=== PATIENT | female | born 1950 | race Caucasian/White ===

== ENCOUNTER → 2018-07-16 07:15 | Outpatient (CLI) | payer MEDICARE, OTHER, SELFPAY ==
[2018-07-16 09:40] LABS: Add Manual Diff / Slide Review NO; Basophils Percent Auto 1.4 % (0-2); Eosinophils Percent Auto 2.2 % (2-4); Hematocrit 41.6 % (36-46); Hemoglobin 14.1 g/dL (12.0-16.0); Lymphocytes Percent Auto 43.7 % (25-40); Mean Corpuscular Hemoglobin 29.7 PG (26-34); Mean Corpuscular Volume 87.4 fL (80-100); Monocytes Percent Auto 6.5 % (3-14); Neutrophils Absolute Auto 1400 /uL (3000-5900); Neutrophils Percent Auto 46.2 % (50-75); Platelet Count 238 X10^3/uL (150-400); Red Blood Cell Count 4.76 X10^6/uL (4.0-5.2); Red Cell Distribution Width 12.8 % (11.6-14.8); White Blood Cell Count 3.1 X10^3/uL (4.5-11.0)
[2018-07-16 09:49] LABS: Alanine Aminotransferase 30 IU/L (9-52); Albumin 4.6 g/dL (3.5-5.0); Albumin Globulin Ratio 1.7 (1.0-2.8); Alkaline Phosphatase 59 U/L (38-126); Aspartate Aminotransferase 30 IU/L (14-36); BUN Creatinine Ratio 15.7 (6-22); Bilirubin Total 0.7 mg/dL (0.2-1.3); Blood Urea Nitrogen 11 mg/dL (7-17); Calcium 9.5 mg/dL (8.4-10.2); Carbon Dioxide 28 mmol/L (22-32); Chloride 104 mmol/L (98-107); Cholesterol 163 mg/dL (140-199); Estimated Glomerular Filt Rate > 60.0 mL/min (>60); Globulin 2.7 g/dL (1.7-4.1); Glucose 80 mg/dL (80-110); HDL Cholesterol 72 mg/dL (40-60); HEMOLYSIS < 15 (0-50); LDL Cholesterol Calculated 80 mg/dL (<100); Potassium 4.4 mmol/L (3.4-5.1); Sodium 144 mmol/L (137-145); Total Protein 7.3 g/dL (6.3-8.2); Triglycerides 56 mg/dL (35-150)
[2018-07-16 10:43] LABS: TSH w/ Reflex to FT4 2.08 uIU/mL (0.47-4.68)
== END ==
PROVIDERS: PCP Family Medicine; Visit Provider Family Medicine
DX: E78.5 Hyperlipidemia, unspecified (principal); E55.9 Vitamin D deficiency, unspecified
CPT/HCPCS: 36415; 80053; 80061; 82306; 84443; 85025

== ENCOUNTER → 2018-09-10 09:10 | Outpatient (CLI) | payer MEDICARE, OTHER, SELFPAY ==
--- NOTE | 2018-09-10 09:11 | DI.MG.S_ITS ---
BILATERAL DIGITAL SCREENING MAMMOGRAM 3D/2D WITH CAD WITH AUGMENTATION: 09/10/2018 CLINICAL: Routine screening. Comparison is made to exams dated: 08/12/2017 mammogram, 06/20/2016 mammogram, and 06/15/2015 mammogram - [facility]. The tissue of both breasts is heterogeneously dense. This may lower the sensitivity of mammography. Current study was also evaluated with a Computer Aided Detection (CAD) system. Bilateral breast implants are intact. No significant masses, calcifications, or other findings are seen in either breast. There has been no significant interval change. IMPRESSION: NEGATIVE There is no mammographic evidence of malignancy. A 1 year screening mammogram is recommended. This exam was interpreted at Station ID: [id number]. NOTE: For mammograms, a report in lay terms will be sent to the patient. Approximately 15% of breast malignancies will not be visualized mammographically. In the management of a palpable breast mass, a negative mammogram must not discourage biopsy of a clinically suspicious lesion. Electronically Signed By: Chela juarez/alisha:09/10/2018 09:57:47 letter sent: Normal Exam ACR BI-RADS Category 1: Negative 3341F
== END ==
PROVIDERS: PCP Family Medicine; Visit Provider Family Medicine
DX: Z12.31 Encounter for screening mammogram for malignant neoplasm of breast (principal)
CPT/HCPCS: 77063; 77067

== ENCOUNTER → 2018-09-24 08:38 | Outpatient (CLI) | payer MEDICARE, OTHER, SELFPAY ==
[2018-09-24 10:49] LABS: Vitamin D 25 Hydroxy (D3) 44.4 ng/mL (30.0-100.0)
== END ==
PROVIDERS: PCP Family Medicine; Visit Provider Family Medicine
DX: E55.9 Vitamin D deficiency, unspecified (principal)
CPT/HCPCS: 36415; 82306

== ENCOUNTER → 2019-07-20 09:10 | Outpatient (CLI) | payer MEDICARE, OTHER, SELFPAY ==
[2019-07-20 09:46] LABS: Add Manual Diff / Slide Review NO; Basophils Absolute Auto 0 /uL (0-100); Basophils Percent Auto 1.2 % (0-2); Eosinophils Absolute Auto 100 /uL (0-450); Eosinophils Percent Auto 2.9 % (2-4); Hematocrit 40.3 % (36-46); Lymphocytes Absolute Auto 1400 /uL (1100-4500); Lymphocytes Percent Auto 40.8 % (25-40); Mean Corpuscular HGB Conc 34.7 % (30-36); Mean Corpuscular Hemoglobin 30.9 PG (26-34); Monocytes Absolute Auto 200 /uL (0-900); Monocytes Percent Auto 6.6 % (3-14); Neutrophils Absolute Auto 1700 /uL (1500-7000); Neutrophils Percent Auto 48.5 % (50-75); Platelet Count 214 X10^3/uL (150-400); Red Blood Cell Count 4.53 X10^6/uL (4.0-5.2); Red Cell Distribution Width 12.3 % (11.6-14.8); White Blood Cell Count 3.5 X10^3/uL (4.5-11.0)
[2019-07-20 10:02] LABS: Alanine Aminotransferase 20 IU/L (<35); Albumin 4.6 g/dL (3.5-5.0); Alkaline Phosphatase 65 U/L (38-126); Aspartate Aminotransferase 27 IU/L (14-36); BUN Creatinine Ratio 18.8 (6-22); Bilirubin Total 0.7 mg/dL (0.2-1.3); Blood Urea Nitrogen 15 mg/dL (7-17); Calcium 9.6 mg/dL (8.4-10.2); Carbon Dioxide 27 mmol/L (22-32); Chloride 106 mmol/L (98-107); Estimated Glomerular Filt Rate > 60.0 mL/min (>60); Globulin 2.7 g/dL (1.7-4.1); Glucose 94 mg/dL (80-110); Potassium 4.5 mmol/L (3.4-5.1); Sodium 141 mmol/L (137-145); Total Protein 7.3 g/dL (6.3-8.2)
[2019-07-20 10:03] LABS: Albumin Globulin Ratio 1.7 (1.0-2.8); Cholesterol 177 mg/dL (140-199); HDL Cholesterol 76 mg/dL (40-60); HEMOLYSIS < 15 (0-50); LDL Cholesterol Calculated 91 mg/dL (<100); Triglycerides 52 mg/dL (35-150)
[2019-07-20 10:13] LABS: Vitamin D 25 Hydroxy (D3) 41.5 ng/mL (30.0-100.0)
== END ==
PROVIDERS: PCP Family Medicine; Visit Provider Family Medicine
DX: E78.5 Hyperlipidemia, unspecified (principal); M85.80 Other specified disorders of bone density and structure, unspecified site
CPT/HCPCS: 36415; 80053; 80061; 82306; 85025

== ENCOUNTER → 2019-08-07 07:53 | Outpatient (CLI) | payer MEDICARE, OTHER, SELFPAY ==
--- NOTE | 2019-08-07 07:54 | DI.RAD.S_ITS ---
PROCEDURE: FL BARIUM SWALLOW W SPEECH INDICATIONS: Trouble Swallowing TECHNIQUE: Examination was conducted in conjunction with speech pathology per standard protocol. In the lateral projection, filming was performed of the patient swallowing. AP projection filming may also be performed with patient swallowing. COMPARISON: None. FINDINGS: Study performed in conjunction with speech pathology. Barium contrasted materials of differing viscosity in texture or utilized for the study. Function: The oral preparatory phase appears normal, with proper containment. The subsequent oral propulsive phase, pharyngeal phase, and esophageal phase of swallowing also appear normal with all proffered substances. Mild laryngotracheal penetration noted. No laryngotracheal jacklyn aspiration. Vallecular pooling was noted with thin and thick barium which is easily cleared with repeated swallows. Morphology: No cricopharyngeal bar is identified. No cervical esophageal webs. No Zenker's diverticulum. No strictures. IMPRESSION: 1. Mild laryngotracheal penetration without jacklyn aspiration. 2. Mild vallecular pooling easily cleared with repeated swallows. 3. Please see speech pathology report for final disposition. Dictated by: Carley De Jesus MD, PhD on 08/11/2019 at 9:56 Approved by: Carley De Jesus MD, PhD on 08/11/2019 at 10:02
--- NOTE | 2019-08-07 12:34 | ST.SWALLOW ---
Visit Care Team Role Provider Type Marjan Gonzales DO Attending Provider Physician Primary Care Provider Specialty: Family Practice Address: [address] [place] [address], [address], [place], [address] Email: 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 Gonzales Reason for Referral Dysphagia with solids Setting Setting Outpatient Care Patient Information Identification Type Name Patient History Patient complains of globus sensation with solid foods. Denies difficulty with thin liquids. She has a history of allergies and is being worked up for possible reflux. Subjective Observations Alert and oriented Patient Positioning Position View Lat-A/P Imaging Lateral View Textures Administered Trials Presented Thin Liquid via Spoon,Thin Liquid via Cup,[place] Liquid via Spoon,[place] Liquid via Cup,Honey Liquid via Spoon, Pudding Thick Liquid via Spoon ,Regular Textures Oral Phase Source: MBSIMP (TM) (C) Bolus Specific Scoring Grid Lip Closure No Impairment (WNL) Tongue Control During Bolus Hold No Impairment (WNL) Bolus Prep/Mastication No Impairment (WNL) Bolus Transport/Lingual Motion No Impairment (WNL) Oral Residue No Impairment (WNL) Residue Clearing No Impairment (WNL) Nasal Regurgitation No Additional Oral Phase Observations No oral phase impairments observed during the study. Pharyngeal Phase Source: MBSIMP (TM) (C) Bolus Specific Scoring Grid Delayed Initiation of Pharyngeal Swallow No Soft Palate Elevation No Impairment (WNL) Tongue Base Strength/Range of Motion No Impairment (WNL) Laryngeal Elevation Mild Impairment Anterior Hyoid Movement No Impairment (WNL) Epiglottic Range of Motion Mild Impairment Vallecular Residue Yes Laryngeal Vestibular Closure No Impairment (WNL) Pharyngeal Stripping Wave No Impairment (WNL) Upper Esophageal Sphincter Opening Mild Impairment Clearance of Residue in the Pyriform Mild Impairment Sinuses Additional Pharyngeal Phase Observations Partial epiglottic inversion and superior movement of thyroid cartilage with partial approximation of arytenoids to epiglottic petiole allowing for flash penetration without aspiration of liquids. Penetration Aspiration Scale Score - 2. At the height of the swallow, laryngeal vestibular closure was complete with no air or contrast in the laryngeal vestibule. Narrowing of the proximal esophagus was observed due to partial distension of the pharyngoesophageal segment opening. Additionally, osteophytes were observed at the level of C 5-6 which may be contributing to patient's symptoms. There was a collection of residue in the valleculae on all trials which increased with bolus size as well as trace residue on the aryepiglottic folds. Residue cleared with a dry swallow. A/P View Textures Administered Trials Presented Barium Tablet Esophageal Observations Esophageal Function Observed complete clearance of barium tablet with additional sips of water. Clinical Impressions Findings Mild pharyngeal phase dysphagia characterized by penetration without aspiration and vallecular residue. Verbal education was provided to patient regarding implementing a double swallow to clear residue, taking small bites/sips and alternating liquids/solids to assist in clearance. No further speech therapy recommended at this time. Recommendations Diet Liquids Order Thin Diet Order Regular Comments Extra sips of water to aid in clearance Aspiration Precautions Recommended Precautions Upright at 90 Degrees, Alternate Liquids/Solids,Small Bites/Sips,Double Swallow Treatment Plan Recommended Referrals Primary Care Physician
== END ==
PROVIDERS: PCP Family Medicine; Visit Provider Family Medicine
DX: R13.10 Dysphagia, unspecified (principal)
CPT/HCPCS: 74230; 92611

== ENCOUNTER → 2019-10-06 11:31 | Outpatient (CLI) | payer MEDICARE, OTHER, SELFPAY | PROVIDERS: PCP Family Medicine; Referring Provider Family Medicine; Visit Provider Family Medicine | DX: Z12.31 Encounter for screening mammogram for malignant neoplasm of breast (principal); Z53.9 Procedure and treatment not carried out, unspecified reason ==

== ENCOUNTER → 2019-11-03 14:29 | Outpatient (CLI) | payer MEDICARE, OTHER, SELFPAY ==
--- NOTE | 2019-11-03 | DI.MG.S_ITS ---
BILATERAL DIGITAL DIAGNOSTIC MAMMOGRAM 3D/2D WITH AUGMENTATION: 11/03/2019 CLINICAL: Left breast lump. Comparison is made to exams dated: 09/10/2018 mammogram - [facility], 08/12/2017 mammogram, and 06/20/2016 mammogram - [facility]. The tissue of both breasts is heterogeneously dense. This may lower the sensitivity of mammography. No significant masses, calcifications, or other findings are seen in either breast. IMPRESSION: INCOMPLETE: NEEDS ADDITIONAL IMAGING EVALUATION There is no abnormality seen in either breast to correspond with the areas of clinical concern and palpable abnormality involving the posterior left upper outer breast and upper outer quadrant of the right breast, however, ultrasound is recommended. The implants have a stable appearance. The recommended breast ultrasound is scheduled to immediately follow this examination. This exam was interpreted at Station ID: [id number]. NOTE: For mammograms, a report in lay terms will be sent to the patient. Approximately 15% of breast malignancies will not be visualized mammographically. In the management of a palpable breast mass, a negative mammogram must not discourage biopsy of a clinically suspicious lesion. Electronically Signed By: Yevgeniy Nugent M.D. aty/:11/03/2019 16:52:47 ACR BI-RADS Category 0: Incomplete 3340F
--- NOTE | 2019-11-03 14:32 | DI.US.S_ITS ---
ULTRASOUND OF RIGHT BREAST: 11/03/2019 CLINICAL: Palpable right breast lump by physician. Comparison is made to exams dated: 11/03/2019 mammogram, 09/10/2018 mammogram - [facility], 08/12/2017 mammogram, 06/20/2016 mammogram, and 06/15/2015 mammogram - [facility]. Color flow and real-time ultrasound of the right breast were performed. Huerta scale images of the real-time examination were reviewed. There is a 0.3 cm x 0.6 cm x 0.2 cm wider than tall oval mass with a circumscribed margin in the right breast at 10 o'clock posterior depth 5 cm from the nipple. This oval mass is hypoechoic with no posterior acoustic shadowing or enhancement. This correlates with area of clinical concern. Color flow imaging demonstrates that there is no vascularity present. This was in the vicinity of the area of clinical concern by the referring physician; however, the patient could not feel it and the transformer shop supervisor could not feel it either after directly localizing it by ultrasound. IMPRESSION: PROBABLY BENIGN The 0.3 cm x 0.6 cm x 0.2 cm wider than tall oval mass in the right breast resembles a small lymph node versus a fibroadenoma and is probably benign. This was in the vicinity of the palpable area of concern as noted by the referring physician but could not be palpated by patient. A follow-up right ultrasound in 6 months is recommended to demonstrate stability. The patient was also instructed to return sooner if development of any clinically suspicious findings over this small mass. Findings and recommendations were relayed to the patient during today's visit. This exam was interpreted at Station ID: [id number]. Electronically Signed By: Yevgeniy lugo/:11/03/2019 17:03:10 letter sent: Followup Recommended Ultrasound BI-RADS: 3 Probably benign
--- NOTE | 2019-11-03 14:32 | DI.US.S_ITS ---
ULTRASOUND OF LEFT BREAST: 11/03/2019 CLINICAL: Palpable left breast lump. Comparison is made to exams dated: 11/03/2019 mammogram, 09/10/2018 mammogram - [facility], 08/12/2017 mammogram, 06/20/2016 mammogram, and 06/15/2015 mammogram - [facility]. Real-time ultrasound of the left breast was performed. Huerta scale images of the real-time examination were reviewed. No significant abnormalities were seen sonographically in the left breast. IMPRESSION: NEGATIVE There is no sonographic evidence of malignancy. There is no abnormality seen in the left breast to correspond with the area of clinical concern and palpable abnormality indicated by triangular marker in the posterior depth, however, clinical followup is recommended for persistent symptoms. A 1 year screening mammogram is recommended for the left breast. This exam was interpreted at Station ID: [id number]. Electronically Signed By: Yevgeniy Nugent M.D. aty/:11/03/2019 16:54:07 letter sent: Normal Exam Ultrasound BI-RADS: 1 Negative
== END ==
PROVIDERS: PCP Family Medicine; Referring Provider Family Medicine; Visit Provider Family Medicine
DX: R92.8 Other abnormal and inconclusive findings on diagnostic imaging of breast (principal); N63.11 Unspecified lump in the right breast, upper outer quadrant; N63.21 Unspecified lump in the left breast, upper outer quadrant
CPT/HCPCS: 76642; 77066; G0279

== ENCOUNTER → 2020-05-03 08:25 | Outpatient (CLI) | payer MEDICARE, OTHER, SELFPAY ==
--- NOTE | 2020-05-03 09:10 | DI.US.S_ITS ---
Patient Name: ANA GUTIERREZ date: 1950 Sex: F Attending Physician: Christian Indications: Date: 05/03/2020 08:59 At the request of: ROGE GRIGGS Procedure: US breast RT limited LIMITED ULTRASOUND OF RIGHT BREAST: 05/03/2020 CLINICAL: 6 month follow-up of palpable mass. Comparison is made to exams dated: 11/03/2019 ultrasound, 11/03/2019 mammogram, 09/10/2018 mammogram, and 11/03/2019 ultrasound - [facility]. Color flow ultrasound of the right breast 10 o'clock region was performed. Huerta scale images of the realtime examination were reviewed. There is a 0.6 cm x 0.4 cm x 0.2 cm oval mass with a circumscribed margin in the right breast at 10 o'clock posterior depth 5 cm from the nipple. This oval mass is hypoechoic. This abnormality is not significantly changed. IMPRESSION: PROBABLY BENIGN The 0.6 cm x 0.4 cm x 0.2 cm oval mass in the right breast resembles a lymph node or a fibroadenoma and is probably benign. A follow-up mammogram and an ultrasound in 6 months is recommended to demonstrate stability. This exam was interpreted at Station ID: [id number]. SUMMARY: Cumulative months of stability: 6. Recommend follow-up right breast diagnostic ultrasound in 6 months to demonstrate continued stability for the finding seen by ultrasound only. The patient will be due for bilateral breast screening mammograms at the time of the follow-up exam. Electronically Signed By: Yordy hudson/alisha:05/03/2020 09:48:53 letter sent: Followup Recommended Continued Report - Page 2 of 2 Patient Name: ANA GUTIERREZ date: 1950 Sex: F Attending Physician: Christian Indications: Date: 05/03/2020 08:59 At the request of: ROGE GRIGGS Procedure: US breast RT limited Ultrasound BI-RADS: 3 Probably benign
== END ==
PROVIDERS: PCP Family Medicine; Referring Provider Family Medicine; Visit Provider Family Medicine
DX: R92.8 Other abnormal and inconclusive findings on diagnostic imaging of breast (principal); N63.11 Unspecified lump in the right breast, upper outer quadrant
CPT/HCPCS: 76642

== ENCOUNTER → 2020-09-22 10:04 | Outpatient (CLI) | payer MEDICARE, OTHER, SELFPAY ==
[2020-09-22 11:46] LABS: Alanine Aminotransferase 18 IU/L (<35); Albumin 4.6 g/dL (3.5-5.0); Alkaline Phosphatase 62 U/L (38-126); Aspartate Aminotransferase 27 IU/L (14-36); Bilirubin Total 0.6 mg/dL (0.2-1.3); Blood Urea Nitrogen 13 mg/dL (7-17); Calcium 9.5 mg/dL (8.4-10.2); Carbon Dioxide 30 mmol/L (22-32); Chloride 101 mmol/L (98-107); Cholesterol 206 mg/dL (140-199); Estimated Glomerular Filt Rate > 60.0 mL/min (>60); Globulin 2.3 g/dL (1.7-4.1); Glucose 85 mg/dL (80-110); HDL Cholesterol 78 mg/dL (40-60); HEMOLYSIS < 15 (0-50); LDL Cholesterol Calculated 110 mg/dL (<100); Potassium 4.3 mmol/L (3.4-5.1); Sodium 135 mmol/L (137-145); Total Protein 6.9 g/dL (6.3-8.2); Triglycerides 89 mg/dL (35-150)
== END ==
PROVIDERS: PCP Family Medicine; Referring Provider Family Medicine; Visit Provider Family Medicine
DX: E78.5 Hyperlipidemia, unspecified (principal)
CPT/HCPCS: 36415; 80053; 80061

== ENCOUNTER → 2020-10-10 09:56 | Outpatient (CLI) | payer MEDICARE, OTHER, SELFPAY ==
--- NOTE | 2020-10-10 09:58 | DI.RAD.S_ITS ---
PROCEDURE: XR DEXA AXIAL SKELETON INDICATIONS: osteopenia COMPARISON: None. FINDINGS: This blank DEXA report has been sent in error by the PACS system. The correct and complete report will be forthcoming in 1-2 days. Thank you for your patience and understanding. Dictated by: Yordy Caballero M.D. on 10/10/2020 at 17:17 Approved by: Yordy Caballero M.D. on 10/10/2020 at 17:17
== END ==
PROVIDERS: PCP Family Medicine; Referring Provider Family Medicine; Visit Provider Family Medicine
DX: M85.851 Other specified disorders of bone density and structure, right thigh (principal); Z78.0 Asymptomatic menopausal state
CPT/HCPCS: 77080

== ENCOUNTER → 2020-11-03 09:16 | Outpatient (CLI) | payer MEDICARE, OTHER, SELFPAY ==
--- NOTE | 2020-11-03 | DI.MG.S_ITS ---
BILATERAL DIGITAL DIAGNOSTIC MAMMOGRAM 3D/2D WITH AUGMENTATION: 11/03/2020 CLINICAL: Short term follow up of the right breast, due for bilateral imaging. Comparison is made to exams dated: 11/03/2019 mammogram, 09/10/2018 mammogram - [facility], and 08/12/2017 mammogram - [facility]. The tissue of both breasts is heterogeneously dense. This may lower the sensitivity of mammography. Bilateral breast implants are intact. There are benign calcifications in both breasts. A cluster of calcisifaction on the CCID view is stable compared to a prior Mammogram in 2017. No significant masses, calcifications, or other findings are seen in either breast. There has been no significant interval change. IMPRESSION: INCOMPLETE: NEEDS ADDITIONAL IMAGING EVALUATION No mammographic evidence of malignancy. An US will be performed today to f/u a finding on prior 05/04/20 US. US will be performed and dictated separately. This exam was interpreted at Station ID: [id number]. NOTE: For mammograms, a report in lay terms will be sent to the patient. Approximately 15% of breast malignancies will not be visualized mammographically. In the management of a palpable breast mass, a negative mammogram must not discourage biopsy of a clinically suspicious lesion. Electronically Signed By: Abiodun Espinal acr/:11/03/2020 10:13:31 letter sent: Need Ultrasound ACR BI-RADS Category 0: Incomplete 3340F
--- NOTE | 2020-11-03 09:18 | DI.US.S_ITS ---
ULTRASOUND OF RIGHT BREAST: 11/03/2020 CLINICAL: 6 month follow-up of mass. Comparison is made to exams dated: 11/03/2020 mammogram, 05/03/2020 ultrasound, 11/03/2019 ultrasound, 09/10/2018 mammogram, and 11/03/2019 mammogram - [facility]. Color flow ultrasound of the right breast was performed. Huerta scale images of the real-time examination were reviewed. There is a stable benign 0.6 cm x 0.4 cm x 0.3 cm oval mass with a circumscribed margin in the right breast at 10 o'clock posterior depth 5 cm from the nipple. This oval mass is hypoechoic. IMPRESSION: BENIGN There is no sonographic evidence of malignancy. The stable 0.6 cm x 0.4 cm x 0.3 cm oval mass in the right breast resembles a lymph node or a fibroadenoma and is benign. A 1 year screening mammogram is recommended. This exam was interpreted at Station ID: [id number]. Electronically Signed By: Abiodun Espinal acr/:11/03/2020 10:43:08 letter sent: Normal Exam Ultrasound BI-RADS: 2 Benign
== END ==
PROVIDERS: PCP Family Medicine; Referring Provider Family Medicine; Visit Provider Family Medicine
DX: R92.8 Other abnormal and inconclusive findings on diagnostic imaging of breast (principal); N63.11 Unspecified lump in the right breast, upper outer quadrant; Z98.82 Breast implant status
CPT/HCPCS: 76642; 77066; G0279

== ENCOUNTER → 2021-09-20 07:39 | Outpatient (CLI) | payer MEDICARE, OTHER, SELFPAY ==
[2021-09-20 10:23] LABS: Alanine Aminotransferase 14 IU/L (<35); Albumin 4.4 g/dL (3.5-5.0); Albumin Globulin Ratio 1.6 (1.0-2.8); Alkaline Phosphatase 50 U/L (38-126); Aspartate Aminotransferase 22 IU/L (14-36); BUN Creatinine Ratio 22.4 (6-22); Bilirubin Total 0.4 mg/dL (0.2-1.3); Blood Urea Nitrogen 17 mg/dL (7-17); Calcium 9.5 mg/dL (8.4-10.2); Carbon Dioxide 28 mmol/L (22-32); Chloride 105 mmol/L (98-107); Cholesterol 177 mg/dL (140-199); Estimated Glomerular Filt Rate > 60.0 mL/min (>60); Globulin 2.7 g/dL (1.7-4.1); Glucose 88 mg/dL (80-110); HDL Cholesterol 65 mg/dL (40-60); HEMOLYSIS < 15 (0-50); LDL Cholesterol Calculated 102 mg/dL (<100); Potassium 4.2 mmol/L (3.4-5.1); Sodium 138 mmol/L (137-145); Total Protein 7.1 g/dL (6.3-8.2); Triglycerides 51 mg/dL (35-150)
== END ==
PROVIDERS: PCP Family Medicine; Referring Provider Family Medicine; Visit Provider Family Medicine
DX: E78.5 Hyperlipidemia, unspecified (principal)
CPT/HCPCS: 36415; 80053; 80061

== ENCOUNTER → 2021-12-12 15:11 | Outpatient (CLI) | payer MEDICARE, OTHER, SELFPAY ==
--- NOTE | 2021-12-12 | DI.MG.S_ITS ---
BILATERAL DIGITAL SCREENING MAMMOGRAM 3D/2D WITH CAD WITH AUGMENTATION: 12/12/2021 CLINICAL: Patient presents for routine screening. S/P bilateral augmentation. Comparison is made to exams dated: 11/03/2020 ultrasound, 11/03/2020 mammogram, and 11/03/2019 mammogram - [facility]. The tissue of both breasts is heterogeneously dense. This may lower the sensitivity of mammography. Current study was also evaluated with a Computer Aided Detection (CAD) system. Right MLO implant displaced view could not be obtained due to relatively small amount of breast tissue relative to implant size. Bilateral subglandular silicone implants are present. The left breast implant is intact. The right implant fibrous capsule is calcified. The right implant surface appears irregular, which is simlar when compared to prior exams. No significant masses, calcifications, or other findings are seen in either breast. IMPRESSION: BENIGN There is no mammographic evidence of malignancy. A 1 year screening mammogram is recommended. The right implant internal capsule appears irregular and may be ruptured. A noncontrast breast MRI could be performed for further evaluation of the right implant if indicated clinically. This exam was interpreted at Station ID: [id number]. NOTE: For mammograms, a report in lay terms will be sent to the patient. Approximately 15% of breast malignancies will not be visualized mammographically. In the management of a palpable breast mass, a negative mammogram must not discourage biopsy of a clinically suspicious lesion. Electronically Signed By: Yordy Caballero M.D. ar/:12/13/2021 08:19:08 letter sent: Normal Exam ACR BI-RADS Category 2: Benign Finding(s) 3342F
== END ==
PROVIDERS: PCP Family Medicine; Referring Provider Family Medicine; Visit Provider Family Medicine
DX: Z12.31 Encounter for screening mammogram for malignant neoplasm of breast (principal); Z98.82 Breast implant status
CPT/HCPCS: 77063; 77067

== ENCOUNTER → 2022-01-04 07:01 | Outpatient (CLI) | payer MEDICARE, OTHER, SELFPAY ==
[2022-01-04 09:04] LABS: Alanine Aminotransferase 23 IU/L (<35); Albumin 4.3 g/dL (3.5-5.0); Albumin Globulin Ratio 1.5 (1.0-2.8); Alkaline Phosphatase 63 U/L (38-126); Aspartate Aminotransferase 28 IU/L (14-36); Bilirubin Total 0.5 mg/dL (0.2-1.3); Blood Urea Nitrogen 22 mg/dL (7-17); Calcium 9.1 mg/dL (8.4-10.2); Carbon Dioxide 26 mmol/L (22-32); Chloride 106 mmol/L (98-107); Cholesterol 171 mg/dL (140-199); Estimated Glomerular Filt Rate > 60 mL/min (>60); Globulin 2.8 g/dL (1.7-4.1); Glucose 88 mg/dL (80-110); HDL Cholesterol 84 mg/dL (40-60); HEMOLYSIS < 15 (0-50); LDL Cholesterol Calculated 78 mg/dL (<100); Potassium 4.2 mmol/L (3.4-5.1); Sodium 139 mmol/L (137-145); Total Protein 7.1 g/dL (6.3-8.2); Triglycerides 45 mg/dL (35-150)
== END ==
PROVIDERS: Family Medicine; PCP Family Medicine; Referring Provider Family Medicine; Visit Provider Family Medicine
DX: E78.5 Hyperlipidemia, unspecified (principal)
CPT/HCPCS: 36415; 80053; 80061

== ENCOUNTER → 2022-03-02 07:19 | Outpatient (CLI) | payer MEDICARE, OTHER, SELFPAY ==
[2022-03-02 09:41] LABS: Add Manual Diff / Slide Review NO; Basophils Absolute Auto 0 /uL (0-100); Eosinophils Absolute Auto 100 /uL (0-450); Eosinophils Percent Auto 2.1 % (2-4); Hemoglobin 13.8 g/dL (12.0-16.0); Lymphocytes Absolute Auto 1400 /uL (1100-4500); Lymphocytes Percent Auto 40.1 % (25-40); Mean Corpuscular HGB Conc 34.5 % (30-36); Monocytes Absolute Auto 300 /uL (0-900); Monocytes Percent Auto 7.8 % (3-14); Neutrophils Absolute Auto 1700 /uL (1500-7000); Platelet Count 222 X10^3/uL (150-400); White Blood Cell Count 3.4 X10^3/uL (4.5-11.0)
[2022-03-02 10:44] LABS: Ferritin 48 ng/mL (11-264)
[2022-03-02 10:59] LABS: Vitamin B12 432 pg/mL (239-931)
[2022-03-14 13:54] LABS: DQ8 (DQA1 03XX, DQB1 0302) Negative (.)
== END ==
PROVIDERS: PCP Pediatrics; Referring Provider Allergy & Immunology; Visit Provider Allergy & Immunology
DX: Z91.018 Allergy to other foods (principal)
CPT/HCPCS: 36415; 81377; 82607; 82728; 85025

== ENCOUNTER → 2022-09-18 07:10 | Outpatient (CLI) | payer MEDICARE, OTHER, SELFPAY ==
[2022-09-18 08:00] LABS: Add Manual Diff / Slide Review NO; Basophils Absolute Auto 0 /uL (0-100); Basophils Percent Auto 1.1 % (0-2); Eosinophils Absolute Auto 100 /uL (0-450); Eosinophils Percent Auto 2.3 % (2-4); Hematocrit 42.3 % (36-46); Hemoglobin 14.4 g/dL (12.0-16.0); Lymphocytes Absolute Auto 1800 /uL (1100-4500); Lymphocytes Percent Auto 48.9 % (25-40); Mean Corpuscular HGB Conc 33.9 % (30-36); Mean Corpuscular Hemoglobin 29.3 PG (26-34); Mean Corpuscular Volume 86.5 fL (80-100); Monocytes Absolute Auto 300 /uL (0-900); Monocytes Percent Auto 7.1 % (3-14); Neutrophils Absolute Auto 1500 /uL (1500-7000); Neutrophils Percent Auto 40.6 % (50-75); Platelet Count 239 X10^3/uL (150-400); Red Blood Cell Count 4.89 X10^6/uL (4.0-5.2); Red Cell Distribution Width 12.8 % (11.6-14.8); White Blood Cell Count 3.7 X10^3/uL (4.5-11.0)
[2022-09-18 08:28] LABS: Alanine Aminotransferase 29 IU/L (<35); Alkaline Phosphatase 79 U/L (38-126); Aspartate Aminotransferase 30 IU/L (14-36); BUN Creatinine Ratio 29.7 (6-22); Bilirubin Total 0.7 mg/dL (0.2-1.3); Blood Urea Nitrogen 22 mg/dL (7-17); Calcium 9.5 mg/dL (8.4-10.2); Carbon Dioxide 26 mmol/L (22-32); Chloride 100 mmol/L (98-107); Cholesterol 189 mg/dL (140-199); Estimated Glomerular Filt Rate > 60 mL/min (>60); Glucose 93 mg/dL (80-110); HDL Cholesterol 88 mg/dL (40-60); HEMOLYSIS < 15 (0-50); LDL Cholesterol Calculated 90 mg/dL (<100); Potassium 4.3 mmol/L (3.4-5.1); Sodium 137 mmol/L (137-145); Total Protein 8.1 g/dL (6.3-8.2); Triglycerides 53 mg/dL (35-150)
[2022-09-18 08:45] LABS: Vitamin D 25 Hydroxy (D3) 60.4 ng/mL (30.0-100.0)
[2022-09-21 15:59] LABS: Albumin 4.8 g/dL (3.5-5.0); Albumin Globulin Ratio 1.5 (1.0-2.8); Globulin 3.3 g/dL (1.7-4.1)
== END ==
PROVIDERS: PCP Family Medicine; Referring Provider Family Medicine; Visit Provider Family Medicine
DX: E55.9 Vitamin D deficiency, unspecified (principal); E78.5 Hyperlipidemia, unspecified
CPT/HCPCS: 36415; 80053; 80061; 82306; 85025

== ENCOUNTER → 2022-12-20 07:22 | Outpatient (CLI) | payer MEDICARE, OTHER, SELFPAY ==
[2022-12-20 08:48] LABS: Cholesterol 234 mg/dL (140-199); HDL Cholesterol 89 mg/dL (40-60); LDL Cholesterol Calculated 134 mg/dL (<100); Triglycerides 57 mg/dL (35-150)
== END ==
PROVIDERS: PCP Family Medicine; Referring Provider Family Medicine; Visit Provider Family Medicine
DX: E78.2 Mixed hyperlipidemia (principal)
CPT/HCPCS: 36415; 80061

== ENCOUNTER → 2022-12-24 07:37 | Outpatient (CLI) | payer MEDICARE, OTHER, SELFPAY ==
--- NOTE | 2022-12-24 | DI.MG.S_ITS ---
BILATERAL DIGITAL SCREENING MAMMOGRAM 3D/2D WITH CAD WITH AUGMENTATION: 12/24/2022 CLINICAL: Routine screening. Comparison is made to exams dated: 12/12/2021 mammogram, 11/03/2019 mammogram, and 09/10/2018 mammogram - [facility]. Both breasts are heterogeneously dense, which may obscure small masses (category c / 51-75% glandular tissue). Current study was also evaluated with a Computer Aided Detection (CAD) system. There are grouped calcifications in the left breast at 7 o'clock middle depth. These are possibly more prominent. No other significant masses, calcifications, or other findings are seen in either breast. Bilateral implants are present. IMPRESSION: INCOMPLETE: NEEDS ADDITIONAL IMAGING EVALUATION The grouped calcifications in the left breast are indeterminate. Additional views with possible ultrasound are recommended. Based on the Tyrer Cuzick model (a risk assessment model) the patient's lifetime risk is 6.8% and her 10 year risk is 4.3%. According to the ACR, ACS, and NCCN guidelines, an annual breast MRI exam along with mammogram is recommended if the patient's lifetime risk is 20% or greater. This exam was interpreted at Station ID: [id number]. NOTE: For mammograms, a report in lay terms will be sent to the patient. Approximately 15% of breast malignancies will not be visualized mammographically. In the management of a palpable breast mass, a negative mammogram must not discourage biopsy of a clinically suspicious lesion. Electronically Signed By: Kemar Washburn M.D. lc/:12/24/2022 11:54:42 letter sent: Additional Imaging Needed ACR BI-RADS Category 0: Incomplete 3340F
== END ==
PROVIDERS: PCP Family Medicine; Referring Provider Family Medicine; Visit Provider Family Medicine
DX: Z12.31 Encounter for screening mammogram for malignant neoplasm of breast (principal)
CPT/HCPCS: 77063; 77067

== ENCOUNTER → 2023-01-21 08:48 | Outpatient (CLI) | payer MEDICARE, OTHER, SELFPAY ==
--- NOTE | 2023-01-21 | DI.MG.S_ITS ---
UNILATERAL LEFT DIGITAL DIAGNOSTIC MAMMOGRAM 3D/2D WITH ADDITIONAL VIEWS: 01/21/2023 CLINICAL: Additional evaluation requested from prior study. Comparison is made to exams dated: 12/24/2022 mammogram, 12/12/2021 mammogram, and 11/03/2020 mammogram - [facility]. The left breast is heterogeneously dense, which may obscure small masses (category c / 51-75% glandular tissue). There are grouped, vanessa-like calcifications in the left breast at 7 o'clock middle depth. No other significant masses or calcifications are seen in the breast. IMPRESSION: PROBABLY BENIGN The grouped calcifications in the left breast are probably benign. A follow-up mammogram in 6 months is recommended to demonstrate stability. Based on the Tyrer Cuzick model (a risk assessment model) the patient's lifetime risk is 6.8% and her 10 year risk is 4.3%. According to the ACR, ACS, and NCCN guidelines, an annual breast MRI exam along with mammogram is recommended if the patient's lifetime risk is 20% or greater. This exam was interpreted at Station ID: [id number]. NOTE: For mammograms, a report in lay terms will be sent to the patient. Approximately 15% of breast malignancies will not be visualized mammographically. In the management of a palpable breast mass, a negative mammogram must not discourage biopsy of a clinically suspicious lesion. Electronically Signed By: Chela juarez/:01/21/2023 09:21:26 letter sent: Followup Recommended ACR BI-RADS Category 3: Probably benign 3343F
== END ==
PROVIDERS: PCP Family Medicine; Referring Provider Family Medicine; Visit Provider Family Medicine
DX: R92.8 Other abnormal and inconclusive findings on diagnostic imaging of breast (principal); T85.43XA Leakage of breast prosthesis and implant, initial encounter; T85.42XA Displacement of breast prosthesis and implant, initial encounter; E78.5 Hyperlipidemia, unspecified; R92.1 Mammographic calcification found on diagnostic imaging of breast
CPT/HCPCS: 77065; G0279

== ENCOUNTER → 2023-07-29 08:43 | Outpatient (CLI) | payer MEDICARE, OTHER, SELFPAY ==
--- NOTE | 2023-07-29 | DI.MG.S_ITS ---
UNILATERAL LEFT DIGITAL DIAGNOSTIC MAMMOGRAM 3D/2D SHORT-TERM FOLLOW-UP WITH AUGMENTATION: 07/29/2023 CLINICAL: Short term follow up for the left breast. Comparison is made to exams dated: 12/24/2022 mammogram, 01/21/2023 mammogram, and 12/12/2021 mammogram - [facility]. The left breast is heterogeneously dense, which may obscure small masses (category c / 51-75% glandular tissue). There are grouped coarse calcifications in the left breast at 7 o'clock middle depth. These are not significantly changed. No other significant masses or calcifications are seen in the breast. IMPRESSION: PROBABLY BENIGN The grouped coarse calcifications in the left breast are probably benign. A follow-up bilateral mammogram in 6 months to include spot magnification views of the the left breast calcifications is recommended to demonstrate stability. Findings and recommendations were conveyed to the patient during today's evaluation. Based on the Tyrer Cuzick model (a risk assessment model) the patient's lifetime risk is 6.4% and her 10 year risk is 4.4%. According to the ACR, ACS, and NCCN guidelines, an annual breast MRI exam along with mammogram is recommended if the patient's lifetime risk is 20% or greater. This exam was interpreted at Station ID: [id number]. NOTE: For mammograms, a report in lay terms will be sent to the patient. Approximately 15% of breast malignancies will not be visualized mammographically. In the management of a palpable breast mass, a negative mammogram must not discourage biopsy of a clinically suspicious lesion. Electronically Signed By: Yevgeniy Nugent M.D. aty/:07/29/2023 09:21:16 letter sent: Followup Recommended ACR BI-RADS Category 3: Probably benign 3343F
== END ==
PROVIDERS: PCP Family Medicine; Referring Provider Family Medicine; Visit Provider Family Medicine
DX: R92.8 Other abnormal and inconclusive findings on diagnostic imaging of breast (principal); R92.2 Inconclusive mammogram; R92.1 Mammographic calcification found on diagnostic imaging of breast
CPT/HCPCS: 77065; G0279

== ENCOUNTER → 2023-08-13 11:39 | Outpatient (CLI) | payer MEDICARE, OTHER, SELFPAY ==
[2023-08-13 13:02] LABS: Cholesterol 240 mg/dL (140-199); HDL Cholesterol 83 mg/dL (40-60); LDL Cholesterol Calculated 145 mg/dL (<100); Triglycerides 60 mg/dL (35-150)
[2023-08-13 13:05] LABS: High Sensitivity CRP - Cardiac < 0.3 mg/L (1.0-3.0)
== END ==
PROVIDERS: PCP Family Medicine; Referring Provider Family Medicine; Visit Provider Family Medicine
DX: E78.5 Hyperlipidemia, unspecified (principal); T85.43XA Leakage of breast prosthesis and implant, initial encounter; Z78.9 Other specified health status; T85.42XA Displacement of breast prosthesis and implant, initial encounter
CPT/HCPCS: 36415; 80061; 86140

== ENCOUNTER → 2023-10-08 09:41 | Outpatient (CLI) | payer MEDICARE, OTHER, SELFPAY ==
--- NOTE | 2023-10-08 | DI.RAD.S_ITS ---
Bone Density Report Name: ANA GUTIERREZ Age: 73 Sex: Female Ethnicity: White Date of : 1950 Indication: osteopenia; Referring Provider: NATASHA DALY Study: Bone densitometry was performed. Exam Date: October 08, 2023 Accession number: [id number] Bone Density: Region BMD T-score Z-score Classification AP Spine(L1-L4) 0.873 -1.6 0.6 Osteopenia Femoral Neck (Left) 0.600 -2.2 -0.4 Osteopenia Total Hip (Left) 0.674 -2.2 -0.6 Osteopenia Femoral Neck (Right) 0.591 -2.3 -0.4 Osteopenia Total Hip (Right) 0.663 -2.3 -0.7 Osteopenia Total Hip Mean 0.669 -2.3 -0.7 Osteopenia World Health Organization criteria for BMD impression classify patients as: Normal (T-score at or above -1.0), Osteopenia (T-score between -1.0 and -2.5), or Osteoporosis (T-score at or below -2.5). 10-year Fracture Risk(1): Major Osteoporotic Fracture 11% Hip Fracture 2.9% Reported Risk Factors: [place] (), Neck BMD=0.591, BMI=18.0 (1) FRAX(R) Version 3.08. Fracture probability calculated for an untreated patient. Fracture probability may be lower if the patient has received treatment. Previous Exams: -- Region Exam Age BMD T-score BMD Change BMD Change Date g/cm2 vs Baseline vs Previous -- AP Spine (L1-L4) 10/08/2023 73 0.873 -1.6 -0.038 (-4.2%)# -0.038 (-4.2%)# 10/10/2020 70 0.911 -1.2 Total Hip(Left) 10/08/2023 73 0.674 -2.2 -0.053 (-7.2%)# -0.053 (-7.2%)# 10/10/2020 70 0.727 -1.8 Total Hip(Right) 10/08/2023 73 0.663 -2.3 -0.040 (-5.6%)# -0.040 (-5.6%)# 10/10/2020 70 0.702 -2.0 -- *Denotes significance at 95% confidence level, LSC for AP Spine = 0.022 g/cm2, LSC for Total Hip = 0.027 g/cm2 # Denotes dissimilar scan types or analysis methods Impression: The patient has low bone mass, based on the Right Total Hip T-score. The patient has an estimated ten-year risk of hip fracture of 2.9% and an estimated ten-year risk of major fracture of 11%, based on the WHO FRAX algorithm. No significant bone loss was observed. Discussion: BONE DENSITY IS LOW AT ONE OR MORE SKELETAL SITES. This patient's lowest T-score is low at one or more skeletal sites. It meets the World Health Organization's (WHO) criteria for low bone mass (T-score between -1.0 and -2.5). The patient's 10-year risk of fracture as calculated by FRAX is less than the threshold where pharmacological therapy is recommended by the National Osteoporosis Foundation (NOF). However, all treatment decisions require clinical judgment and consideration of individual patient factors, including patient preferences, comorbidities, previous drug use, risk factors not captured in the FRAX model (e.g., frailty, falls, vitamin D deficiency, increased bone turnover, interval significant decline in bone density) and possible under or overestimation of fracture risk by FRAX. The patient should follow a healthful lifestyle (good nutrition with adequate calcium and vitamin D, and appropriate weight-bearing exercise). Follow-Up: Consider repeating this study in 2 to 3 years to reassess this patient's status, or sooner if there is some new clinical indication. Reported by: AMANDA GILLESPIE M.D. on 10/08/2023 10:22:00 AM.
== END ==
LOC: RAD 09:43
PROVIDERS: PCP Family Medicine; Referring Provider Family Medicine; Visit Provider Family Medicine
DX: M85.851 Other specified disorders of bone density and structure, right thigh (principal); N95.1 Menopausal and female climacteric states
CPT/HCPCS: 77080

== ENCOUNTER 2024-01-07 07:33 | Day surgery (SDC) | payer MEDICARE, OTHER, SELFPAY ==
[2024-01-07] MEDS: LACTATED RINGERS 1,000 ML 42 ML IV (07:59)
[2024-01-07 08:03] VITALS: BP 110/72; PULSE 84; RESP 16; TEMP 36.6; O2SAT 99
--- NOTE | 2024-01-07 08:42 | PM.HP.1 ---
History of Present Illness History of Present Illness Date Patient Seen: 01/07/24 Time Patient Seen: 08:42 Chief complaint: SD Narrative: 73-year-old woman personal history of colonic polyps here for screening colonoscopy. Last colonoscopy 2017 [place]. No family history of intestinal malignancy. No abdominal concerns today. [facility] Medical History Chronic diarrhea Basal cell carcinoma Actinic keratosis Acid reflux Osteopenia Seasonal allergies Mumps (~1963) Measles (~1957) Chicken pox (~1955) Tinnitus Hearing loss (~2015) Hyperlipidemia (~2004) Abnormal Pap smear of cervix Surgical History Anesthesia History of hand surgery (~1995) History of breast augmentation (~1982) Family History Brother Age: 82 Hypertension Father Prostate cancer Mother Hypertension High cholesterol Stroke Grandmother Heart disease Sister Age: 73 Hypertension High cholesterol Sister Age: 75 High cholesterol Grandfather No problems noted. Grandfather No problems noted. Social History Smoking Status: Never smoker alcohol intake: current Meds Home Medications and Allergies Allergies Allergy/AdvReac Type Severity Reaction Status Date / Time No Known Drug Allergies Allergy Verified 09/27/23 08:36 Exam Vital Signs (past 8 hours): - 01/07/24 08:03 Temperature 97.8 F Pulse Rate 84 Respiratory Rate 16 Blood Pressure 110/72 Pulse Oximetry 99 Oxygen Delivery Method Room Air Oxygen Delivery Method Room Air Narrative Exam Narrative: General adult woman alert oriented no acute distress Chest nonlabored respiration Extremities warm well perfused Assessment & Plan Assessment & Plan narrative: The patient requires colorectal screening and colonoscopy is recommended. Technical details were discussed. Risks, benefits, alternatives explained. Risks including but not limited to myocardial infarction, aspiration, bleeding, pain, missed lesion, incomplete examination, need for further radiographic studies, intestinal injury, and need for major abdominal surgery were discussed. All questions were answered to their satisfaction, and they are in agreement with this plan.
[2024-01-07 09:15] VITALS: BP 104/65; PULSE 91; RESP 23; TEMP 37.1; O2SAT 97
--- NOTE | 2024-01-07 09:18 | P.OP.COLON_ITS ---
Operative Date/Time/Diagnoses Date of procedure: 01/07/24 Time of procedure: 09:18 Pre-op diagnosis: Personal history of colonic polyps Post-op diagnosis: same Procedure & Clinicians Study performed: Screening colonoscopy Indications: Colorectal screening Personal history of colonic polyps Surgeon: Sherif Hdez Procedure Notes Procedure in detail: The history and physical was performed/updated and the patient is ASA class is 2. The procedure was discussed in detail with the patient. Potential risks complications including infection, bleeding, missed diagnosis, perforation, need for surgery, and were explained. Their questions were answered and info rmed consent was obtained. Patient was brought to the procedure room and placed standard monitoring equipment. The patient's vital signs were monitored continuously throughout the entire procedure. Prior to starting time-out was performed. The patient was placed in the left lateral recumbent position. Procedural sedation was administered by anesthesia. Examination began with a thorough inspection of the perianal area there was no evidence of fissures, fistulae, external hemorrhoids or cutaneous malignancy. The colonoscopy scope was then placed into the anal canal and was advanced to the cecum, which was identified by the ileocecal valve, the appendiceal orifice and the confluence of the taenia. The scope was then slowly withdrawn examining colon thoroughly in all directions, irrigating it of any residual stool. The scope was retroflexed within the rectum The patient tolerated the procedure well. They will be discharged once criteria are met. The prep was of good/excellent quality. The withdrawl time was 6 minutes. FINDINGS * Diverticulosis of descending colon * No polyps Findings: divertiulosis Specimen(s): none sent Impression: Normal colonoscopy Post-procedure Recommendations: High fiber diet Plan for aftercare: No further colonoscopy necessary unless symptomatic Disposition: same day surgery
[2024-01-07 09:21] VITALS: BP 97/65; PULSE 94; RESP 22; TEMP 37; O2SAT 99
[2024-01-07 09:28] VITALS: BP 115/70; PULSE 92; RESP 15; TEMP 36.7; O2SAT 98
== END 2024-01-07 09:35 | disposition home or self-care (01) ==
PROVIDERS: PCP Family Medicine; Referring Provider Surgery; Visit Provider Surgery
PROC: 0DJD8ZZ Inspection of Lower Intestinal Tract, Via Natural or Artificial Opening Endoscopic (ICD-10-PCS; CPT 45378; principal; 2024-01-07 08:45)
DX: Z12.11 Encounter for screening for malignant neoplasm of colon (principal); Z86.010 Personal history of colon polyps; K57.30 Diverticulosis of large intestine without perforation or abscess without bleeding
CPT/HCPCS: G0105; J2704

== ENCOUNTER → 2024-02-06 08:45 | Outpatient (CLI) | payer MEDICARE, OTHER, SELFPAY ==
--- NOTE | 2024-02-06 08:46 | DI.MG.S_ITS ---
BILATERAL DIGITAL DIAGNOSTIC MAMMOGRAM 3D/2D WITH AUGMENTATION: 02/06/2024 CLINICAL: Patient returns for a 6 month follow up of the left breast, due for bilateral exam. Comparison is made to exams dated: 07/29/2023 mammogram, 01/21/2023 mammogram, 12/24/2022 mammogram, 12/12/2021 mammogram, and 11/03/2020 mammogram - [facility]. Both breasts are heterogeneously dense, which may obscure small masses (category c / 51-75% glandular tissue). There are stable grouped coarse calcifications in the left breast at 7 o'clock middle depth. No other significant masses, calcifications, or other findings are seen in either breast. IMPRESSION: PROBABLY BENIGN The stable grouped coarse calcifications in the left breast are probably benign. A follow-up mammogram in 6 months is recommended to demonstrate stability. Based on the Tyrer Cuzick model (a risk assessment model) the patient's lifetime risk is 6.4% and her 10 year risk is 4.4%. According to the ACR, ACS, and NCCN guidelines, an annual breast MRI exam along with mammogram is recommended if the patient's lifetime risk is 20% or greater. This exam was interpreted at Station ID: [id number]. NOTE: For mammograms, a report in lay terms will be sent to the patient. Approximately 15% of breast malignancies will not be visualized mammographically. In the management of a palpable breast mass, a negative mammogram must not discourage biopsy of a clinically suspicious lesion. Electronically Signed By: Kemar fletcher/alisha:02/06/2024 09:58:44 letter sent: Followup Recommended ACR BI-RADS Category 3: Probably benign [id number]
== END ==
PROVIDERS: PCP Family Medicine; Referring Provider Family Medicine; Visit Provider Family Medicine
DX: R92.1 Mammographic calcification found on diagnostic imaging of breast (principal); R92.333 Mammographic heterogeneous density, bilateral breasts
CPT/HCPCS: 77066; G0279

== ENCOUNTER → 2024-08-24 08:33 | Outpatient (CLI) | payer MEDICARE, OTHER, SELFPAY ==
--- NOTE | 2024-08-24 | DI.MG.S_ITS ---
UNILATERAL LEFT DIGITAL DIAGNOSTIC MAMMOGRAM 3D/2D SHORT-TERM FOLLOW-UP WITH AUGMENTATION: 08/24/2024 CLINICAL: Patient returns for a 6 month follow up of the left breast. Comparison is made to exams dated: 02/06/2024 mammogram, 07/29/2023 mammogram, 01/21/2023 mammogram, and 12/24/2022 mammogram - [facility]. The breasts are heterogeneously dense, which may obscure small masses (category c / 51-75% glandular tissue). There are stable grouped coarse calcifications in the left breast at 7 o'clock middle depth. These findings are stable since 01/21/2023. No other significant masses or calcifications are seen in the breast. IMPRESSION: PROBABLY BENIGN Left breast grouped coarse calcifications at 7 o'clock middle depth, stable since December 2022. Findings are probably benign. Recommend follow-up mammogram in 6 months to demonstrate over 2 years of stability. Patient will be due for bilateral mammogram at that time. Findings and recommendations were conveyed to the patient during today's evaluation. Based on the Tyrer Cuzick model (a risk assessment model) the patient's lifetime risk is 6.1% and her 10 year risk is 4.5%. According to the ACR, ACS, and NCCN guidelines, an annual breast MRI exam along with mammogram is recommended if the patient's lifetime risk is 20% or greater. This exam was interpreted at Station ID: [id number]. NOTE: For mammograms, a report in lay terms will be sent to the patient. Approximately 15% of breast malignancies will not be visualized mammographically. In the management of a palpable breast mass, a negative mammogram must not discourage biopsy of a clinically suspicious lesion. Electronically Signed By: Ann Berman M.D., Ph.D. eb/:08/24/2024 09:36:39 letter sent: Followup Recommended ACR BI-RADS Category 3: Probably Benign
== END ==
PROVIDERS: PCP Family Medicine; Referring Provider Family Medicine; Visit Provider Family Medicine
DX: R92.1 Mammographic calcification found on diagnostic imaging of breast
CPT/HCPCS: 77065; G0279

== ENCOUNTER → 2025-02-15 08:30 | Outpatient (CLI) | payer MEDICARE, OTHER, SELFPAY ==
--- NOTE | 2025-02-15 08:32 | DI.MG.S_ITS ---
MM diagnostic mammo implant BI: 02/15/2025. BI-RADS: 2 CLINICAL: 75-year old female for bilateral diagnostic mammogram that is a follow-up to diagnostic, left, digital, tomosynthesis, with augmentation, sh on 08/24/2024. Tyrer-Cuzick lifetime risk of 2.7%. No personal or first-degree family history of breast cancer. The patient has bilateral implants. PRIOR EXAMS 08/24/2024, 02/06/2024, 07/29/2023, 01/21/2023, 12/24/2022, 12/12/2021, 11/03/2020, 05/03/2020, 11/03/2019, 09/10/2018. MAMMOGRAPHY TECHNIQUE: 2D and 3D (tomosynthesis) digital mammographic views obtained, with additional images as needed for full coverage. Current study was also evaluated with a Computer Aided Detection (CAD) system. DENSITY C. The breasts are heterogeneously dense, which may obscure small masses. IMPLANTS There are retroglandular silicone implants that appear intact. Capsular calcification present. MAMMOGRAPHY FINDINGS Right: No suspicious mass, asymmetry, microcalcification, or other abnormality seen. Left: Lower Inner at 7:00, Middle depth: There are benign coarse calcifications that are unchanged in size and appearance. Left: This finding has demonstrated two years of stability and is consistent with a benign etiology. Bilateral: Silicone implants. IMPRESSION: Right * No evidence of malignancy. Left * No evidence of malignancy with benign findings. RECOMMENDATIONS Bilateral * Annual screening mammography. COMMENTS: Findings and recommendations were conveyed to the patient during today's evaluation. OVERALL ASSESSMENT CATEGORY BI-RADS-2: Benign. The [employer] recommends annual screening mammography beginning at age 40 for women with average risk of breast cancer. ELECTRONICALLY SIGNED: Sharon Chandra M.D. on 02/16/2025 at 11:59:01 PM PT Interpreting Station ID: [id number]
== END ==
LOC: MAMMO 08:31
PROVIDERS: PCP Family Medicine; Referring Provider Family Medicine; Visit Provider Family Medicine
DX: R92.1 Mammographic calcification found on diagnostic imaging of breast (principal); R92.333 Mammographic heterogeneous density, bilateral breasts; Z98.82 Breast implant status
CPT/HCPCS: 77066; G0279

== ENCOUNTER → 2025-02-25 07:05 | Outpatient (CLI) | payer MEDICARE, OTHER, SELFPAY ==
[2025-02-25 07:55] LABS: Hematocrit 41.6 % (36-46); Hemoglobin 14.2 g/dL (12.0-16.0); Mean Corpuscular HGB Conc 34.3 % (30-36); Mean Corpuscular Hemoglobin 30.4 PG (26-34); Mean Corpuscular Volume 88.7 fL (80-100); Platelet Count 205 X10^3/uL (150-400); Red Blood Cell Count 4.68 X10^6/uL (4.0-5.2); Red Cell Distribution Width 12.5 % (11.6-14.8); White Blood Cell Count 4.1 X10^3/uL (4.5-11.0)
[2025-02-25 08:25] LABS: Alanine Aminotransferase 22 IU/L (<35); Albumin 4.7 g/dL (3.5-5.0); Albumin Globulin Ratio 1.7 (1.0-2.8); Alkaline Phosphatase 74 U/L (38-126); Aspartate Aminotransferase 26 IU/L (14-36); Bilirubin Total 0.6 mg/dL (0.2-1.3); Blood Urea Nitrogen 20 mg/dL (7-17); Calcium 9.6 mg/dL (8.4-10.2); Carbon Dioxide 25 mmol/L (22-32); Chloride 105 mmol/L (98-107); Cholesterol 239 mg/dL (140-199); Estimated Glomerular Filt Rate > 60 mL/min (>60); Globulin 2.7 g/dL (1.7-4.1); Glucose 88 mg/dL (70-99); HDL Cholesterol 89 mg/dL (40-60); HEMOLYSIS < 15 (0-50); LDL Cholesterol Calculated 135 mg/dL (<100); Potassium 4.4 mmol/L (3.4-5.1); Sodium 138 mmol/L (137-145); Total Protein 7.4 g/dL (6.3-8.2); Triglycerides 73 mg/dL (35-150)
[2025-02-25 08:45] LABS: Vitamin D 25 Hydroxy (D3) 65.9 ng/mL (30.0-100.0)
== END ==
PROVIDERS: PCP Family Medicine; Referring Provider Family Medicine; Visit Provider Family Medicine
DX: D72.810 Lymphocytopenia (principal); E78.2 Mixed hyperlipidemia; E55.9 Vitamin D deficiency, unspecified
CPT/HCPCS: 36415; 80053; 80061; 82306; 85027; 86140